=== PATIENT | female | born 1990 | race African-American/Black ===

== ENCOUNTER 2019-09-23 16:56 | Emergency (ER) | payer MEDICAID ==
[~2019-09-23] VITALS: Ht 165.1 cm; Wt 61.7 kg
[2019-09-23 16:56] VITALS: BP 124/78
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
[2019-09-23] MEDS ORDERED: Ketorolac 30mg Inj IM ONE (18:15)
[2019-09-23] MEDS ORDERED: Methocarbamol 750mg tab ORAL ONE (18:15)
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
[2019-09-23] MEDS ORDERED: ZOFRAN4 M1 ORAL (18:22)
[2019-09-23] MEDS ORDERED: IBU800 MG PO (18:22)
[2019-09-23] MEDS ORDERED: LIDODERM700 M1 TOPIC (18:22)
[2019-09-23] MEDS ORDERED: ROBAXIN-500MG ORAL (18:22)
[2019-09-23 18:49] VITALS: BP 117/70
== END 2019-09-23 18:51 | disposition home or self-care (01) ==
LOC: EDBD 16:56 → EMR 17:44
DX: S00.93XA Contusion of unspecified part of head, initial encounter (principal); S80.11XA Contusion of right lower leg, initial encounter; S16.1XXA Strain of muscle, fascia and tendon at neck level, initial encounter; V43.62XA Car passenger injured in collision with other type car in traffic accident, initial encounter; Y92.410 Unspecified street and highway as the place of occurrence of the external cause
CPT/HCPCS: 70450; 73590; 96372; J1885; J2405; Z7502; 99284